=== PATIENT | male | born 2000 | race Caucasian/White ===

== ENCOUNTER 2019-11-12 17:08 | Emergency (ER) | payer OTHER ==
[2019-11-12 17:20] VITALS: BP 119/56
--- NOTE | 2019-11-13 08:35 | REP ---
LEFT WRIST, FIVE VIEWS INCLUDING SCAPHOID VIEW: There is no evidence of an acute fracture, dislocation or intrinsic bone disease. IMPRESSION: No fracture or dislocation. Electronically Signed by Tariq Dupree MD 11/13/2019 06:21 P
== END 2019-11-12 18:11 | disposition home or self-care (01) ==
LOC: M ED 17:08
DX: S63.502A Unspecified sprain of left wrist, initial encounter (principal); W00.0XXA Fall on same level due to ice and snow, initial encounter; Y92.9 Unspecified place or not applicable; Y93.9 Activity, unspecified; Y99.0 Civilian activity done for income or pay

== ENCOUNTER 2019-12-01 01:34 | Inpatient (IN) | payer OTHER ==
[2019-12-01 02:21] LABS: HEMATOCRIT 49.7 % (42.0-52.0); MEAN CORPUSCULAR HGB CONC 32.2 g/dl (32.0-36.5); PLATELET COUNT, AUTOMATED 207 10^3/uL (150-450); RED BLOOD COUNT 5.52 10^6/uL (4.30-6.10); WHITE BLOOD COUNT 8.1 10^3/uL (4.0-10.0)
[2019-12-01 02:47] LABS: AMPHETAMINES LEVEL URINE NEGATIVE (NEGATIVE); BARBITURATES URINE NEGATIVE (NEGATIVE); BENZODIAZEPINES URINE NEGATIVE (NEGATIVE); CANNABINOIDS URINE NEGATIVE (NEGATIVE); COCAINE METABOLITE URINE NEGATIVE (NEGATIVE); METHADONE URINE NEGATIVE (NEGATIVE); OPIATES URINE NEGATIVE (NEGATIVE); PHENCYCLIDINE URINE NEGATIVE (NEGATIVE)
[2019-12-01 02:54] LABS: ACETAMINOPHEN LEVEL < 2.0 UG/ML (10.0-30.0); ALBUMIN 4.3 GM/DL (3.2-5.2); ALT/SGPT 15 U/L (12-78); BILIRUBIN,DIRECT 0.1 MG/DL (0.0-0.2); BILIRUBIN,TOTAL 0.5 MG/DL (0.2-1.0); BLOOD UREA NITROGEN 16 MG/DL (7-18); CALCIUM LEVEL 8.9 MG/DL (8.5-10.1); CARBON DIOXIDE LEVEL 28 MEQ/L (21-32); CHLORIDE LEVEL 107 MEQ/L (98-107); CREATININE FOR GFR 1.07 MG/DL (0.70-1.30); ETHYL ALCOHOL (ETHANOL) < 0.003 % (0.000-0.010); GLUCOSE, FASTING 99 MG/DL (70-100); POTASSIUM SERUM 3.9 MEQ/L (3.5-5.1); SALICYLATE LEVEL < 1.7 MG/DL (5.0-30.0); SODIUM LEVEL 141 MEQ/L (136-145)
[2019-12-01] MEDS ORDERED: MAALOX 30 ML SUSP *UDC PO PRN (03:45)
[2019-12-01] MEDS ORDERED: ACETAMINOPHEN TAB 650MG DOSE (2X325MG) PO PRN (03:45)
[2019-12-01] MEDS ORDERED: traZODone 50 MG TAB PO PRN (03:45)
[2019-12-01] MEDS ORDERED: MOM 30ML SUSPENSION UDC PO PRN (03:45)
[2019-12-01] MEDS ORDERED: ACET-907 PO (04:02)
[2019-12-01 04:32] VITALS: BP 124/75
--- NOTE | 2019-12-01 11:06 | MHHPEPDOC ---
[facility] History & Physical History and Physical DATE OF ADMISSION: Dec 01, 2019 at 03:41 New Patient Rajeev France MRN: N/A Date of : N/A Date of Service: 12/01/2019 Chief Complaint "I had a moment." History of Present Illness The patient a 19-year-old man presents with superficial scratches on his arm, he reports that he found out that his fiance had miscarried and he reports for the last several months, he has been bullied in the . He reports that he has had some low mood and loss of interest at times, but does not meet criteria for major depression. He reports that in the distant past when he was in second grade, he had some reported behavioral problems in the setting of a chaotic early family life but otherwise has been doing well. The patient was admitted out of an abundance of caution. He is currently on 72-hour quarantine as he had gone outside the 60 mile radius designated by [place]. The patient reports that he is feeling much better when I spoke to him. He reports that he finds the situation can overwhelm him. He is interested in trying an antidepressant but is not interested in staying very long on her unit due to the constraints due to the coronavirus pandemic at this time. Review Of Systems Depression: As above. Anxiety: The patient denies any excessive worry associated with physical symptoms. They deny any experience of discreet panic in the past. Radha: The patient denies any episodes of euphoria/dysphoria associated with decreased need for sleep, hedonism, talkatively or impulsivity lasting longer than 5 days. Psychotic: The patient denies any experiences of auditory or visual hallucinations. They deny any episodes of paranoia or delusional thinking in the past Trauma: The patient denies any traumatic events associated with nightmares or intrusive thoughts. Borderline: Not screened due to age. Past Psychiatric History Reports a history of ADHD. Reports being hospitalized at second grade for [employer] reasons. He is on no current antidepressants, had seen [facility] twice for walk-ins. No history of suicide attempts. Allergies Please see below. Family Psychiatric History Reports his father had PTSD and was an alcoholic as well as his mother. No history of suicide. Social History The patient is unmarried man who is currently in a relationship with his fiancee for the last year. He has no children. He currently lives in the [facility]. He subsists on income and has recently joined the over the last 2 years. He does not have any pending legal problems but was given a warning about his travel outside the 60 mile radius. The patient reports an early chaotic family life with CPS involvement and even foster care. Substance Abuse History The patient denies any excessive alcohol use, tobacco or illicit drug use, denies history of substance use treatment. Medical History Patient has no significant past medical history. Mental Status Examination General: Well dressed with good hygiene Speech: Spontaneous and fluid Thought processes: Linear and logical MSK: Smooth and coordinated gait, no signs of tremors or involuntary orofacial movements Thought content: Future orientated Abstract reasoning, and computation: Intact Description of associations: Intact Description of abnormal or psychotic thoughts: Denies any suicidal or homicidal ideation. Denies any auditory or visual hallucinations. Does not appear to be responding to internal stimuli. Does not appear to be endorsing any bizarre or paranoid ideation. 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 Cluster B personality traits. 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 After being admitted it appears these symptoms had gone away, his reported "suicide attempt" appears to be extremely mild, and would be very difficult to characterize as a suicide attempt as the scratches are consistent with more irritation of the skin than actual breaking of skin. Representing what I feel to be more a gesture, when asked specifically about why he did it he does it as means of "control" more consistent with some underlying cluster B personality traits. Patient will be observed and discharged tomorrow if he continues to deny suicide and does not exhibit any behavioral problems. Disposition Discharge tomorrow if improved. Problem List 1. Risk for suicide. 2. Ineffective coping. Initial Treatment Plan 1. Patient was admitted on a 9.39 legal status. 2. Complete history was obtained. 3. With patients permission, family will be contacted and database will be expanded. 4. Patients medication regimen will be reviewed and changed accordingly. 5. Patient will be provided with protected environment. 6. Patient will be treated with individual, group, and milieu therapies. 7. Patient will receive supportive psych-education. 8. Discharge planning will commence immediately. 9. Outpatient follow-up treatment will be strongly recommended. 10. The initial treatment plan will focus initially on: Estimated Length Of Stay 2 days. Time Spent 70 minutes with greater than 70% of time spent on counseling/coordination of care. Vital Signs Vital Signs Date Time Temp Pulse Resp B/P (MAP) Pulse Ox O2 Delivery O2 Flow Rate FiO2 12/01/19 08:48 Room Air 12/01/19 04:32 98.2 73 20 124/75 (91) 12/01/19 01:57 96 Laboratory Data 24H Labs Laboratory Tests 2 12/01/19 02:02: Nucleated Red Blood Cells % (auto) 0.0, Anion Gap 6L, Calcium Level 8.9, Total Bilirubin 0.5, Direct Bilirubin 0.1, Aspartate Amino Transf (AST/SGOT) 10, Alanine Aminotransferase (ALT/SGPT) 15, Alkaline Phosphatase 75, Total Protein 8.0, Albumin 4.3, Albumin/Globulin Ratio 1.16, Thyroid Stimulating Hormone (TSH) 3.790, Salicylates Level < 1.7L, Urine Opiates Screen NEGATIVE, Urine Methadone Screen NEGATIVE, Acetaminophen Level < 2.0L, Urine Barbiturates Screen NEGATIVE, Urine Phencyclidine Screen NEGATIVE, Urine Amphetamines Screen NEGATIVE, Urine Benzodiazepines Screen NEGATIVE, Urine Cocaine Metabolite Screen NEGATIVE, Urine Cannabinoids Screen NEGATIVE, Ethyl Alcohol Level < 0.003 CBC/BMP Laboratory Tests 12/01/19 02:02 Medications Scheduled PRN Acetaminophen (Tylenol) 325 Mg Tablet, 650 MG PO Q4H PRN for PAIN, (Reported) Allergies Coded Allergies: No Known Allergies (Unverified , 12/01/19) A-FIB/CHADSVASC A-FIB History Current/History of A-Fib/PAF?: No LARS RODRIGUEZ DO Dec 01, 2019 11:06
--- NOTE | 2019-12-01 13:03 | HPEPDOC ---
General Date of Admission Dec 01, 2019 at 03:41 Date of Service: Dec 01, 2019 Chief Complaint The patient is a 19-year-old male admitted with a reason for visit of Unspecified Depressive Disorder. Source: Patient Exam Limitations: No limitations Associated Symptoms: Denies Symptoms History of Present Illness Pt is a 19 year old male who was admitted to the behavioral health unit following threats of suicide with attempted suicide. Pt reported that he has been bullied for the past 9 months at ; his coworkers have claimed that he looks like a 'school shooter' and taunt him about it. Pt has also reported that his fiance has recently suffered a miscarriage which worsened his depression. Pt does not take medications for depression and denied previous SI/attempts. 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 He unwittingly went outside of that zone to [place] on Thursday. He was to self- isolate for 72 hours per his [employer] supervisor(s) and has so far, completed 48 of the 72-hour self-isolation. Pt reported he is well and asymptomatic. He was not screened [place]. Home Medications Scheduled PRN Acetaminophen (Tylenol) 325 Mg Tablet, 650 MG PO Q4H PRN for PAIN, (Reported) Allergies Coded Allergies: No Known Allergies (Unverified , 12/01/19) Past Medical History Medical History Unremarkable Surgical History none Family History Significant Family History: No pertinent family hx Social History * Smoker: current smoker, cigarettes (2 per day ), chew (daily ) Alcohol: Denies Drugs: denies A-FIB/CHADSVASC A-FIB History Current/History of A-Fib/PAF?: No Current PO Anticoag Therapy: No Review of Systems Constitutional: Denies: Chills, Fever, Night Sweats Eyes: Denies: Pain ENT: Denies: Head Aches, Ear Pain Skin: Denies: Rash Pulmonary: Denies: Dyspnea, Cough Cardiovascular: Denies: Chest Pain, Palpitations, Edema Gastrointestinal: Denies: Nausea, Vomiting, Abdominal Pain, Diarrhea, Constipation Genitourinary: Denies: Dysuria, Retention Hematologic: Denies: Bruising Musculoskeletal: Denies: Neck Pain, Back Pain, Joint Pain, Muscle Pain, Spasms Neurological: Denies: Weakness, Numbness Psych: Reports: Depression, Thoughts of Self Harm; Denies: Thoughts of Harming Other Physical Examination General Exam: Positive: Alert, No Acute Distress Eye Exam: Positive: PERRLA, Conjunctiva & lids normal, EOMI; Negative: Sclera icteric ENT Exam: Positive: Atraumatic, Mucous membr. moist/pink, Pharynx Normal Neck Exam: Positive: Supple; Negative: thyromegaly Chest Exam: Positive: Clear to auscultation, Normal air movement Heart Exam: Positive: Rate Normal, Regular Rhythm, Normal S1, Normal S2; Negative: Murmurs, Rubs Telemetry: Positive: No significant arrhythmia Abdomen Exam: Positive: Normal bowel sounds, Soft; Negative: Tenderness Extremity Exam: Positive: Normal pulses; Negative: Clubbing, Cyanosis, Edema Skin Exam: Positive: Nl turgor and temperature Neuro Exam: Positive: Normal Gait, Normal Speech, Cranial Nerves 3-12 NL Psych Exam: Positive: Mood NL Vital Signs Vital Signs Date Time Temp Pulse Resp B/P (MAP) Pulse Ox O2 Delivery O2 Flow Rate FiO2 12/01/19 08:48 Room Air 12/01/19 04:32 98.2 73 20 124/75 (91) 12/01/19 01:57 96 Laboratory Data Labs 24H Laboratory Tests 2 12/01/19 02:02: Nucleated Red Blood Cells % (auto) 0.0, Anion Gap 6L, Calcium Level 8.9, Total Bilirubin 0.5, Direct Bilirubin 0.1, Aspartate Amino Transf (AST/SGOT) 10, Alanine Aminotransferase (ALT/SGPT) 15, Alkaline Phosphatase 75, Total Protein 8.0, Albumin 4.3, Albumin/Globulin Ratio 1.16, Thyroid Stimulating Hormone (TSH) 3.790, Salicylates Level < 1.7L, Urine Opiates Screen NEGATIVE, Urine Methadone Screen NEGATIVE, Acetaminophen Level < 2.0L, Urine Barbiturates Screen NEGATIVE, Urine Phencyclidine Screen NEGATIVE, Urine Amphetamines Screen NEGATIVE, Urine Benzodiazepines Screen NEGATIVE, Urine Cocaine Metabolite Screen NEGATIVE, Urine Cannabinoids Screen NEGATIVE, Ethyl Alcohol Level < 0.003 CBC/BMP Laboratory Tests 12/01/19 02:02 Assessment/Plan Pt is a 19 year old male who was admitted to the behavioral health unit following threats of suicide with attempted suicide. Pt reported that he has been bullied for the past 9 months at ; his coworkers have claimed that he looks like a 'school shooter' and taunt him about it. Pt has also reported that his fiance has recently suffered a miscarriage which worsened his depression. Pt does not take medications for depression and denied previous SI/attempts. 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 He unwittingly went outside of that zone to [place] on Thursday. He was to self- isolate for 72 hours per his [employer] supervisor(s) and has so far, completed 48 of the 72-hour self-isolation. Pt reported he is well and asymptomatic. He was not screened [place] the [place]. Depression with suicidal attempt - superficial cuts to the L forearm have begun to scab, will heal without intervention - continued management per psychiatry Isolation precautions - I referred to Liya Patel ([facility]) for instructions regarding pts self-isolation; she of course, stated that the pt should complete his 72 hour self-isolation on [facility]. - I have informed his psychiatrist and PFS. - I have placed the pt on isolation/droplet/contact precautions with a note regarding the above. Medicine will sign off on the patient at this time. Please re-consult as needed. Plan / VTE VTE Prophylaxis Ordered?: No JEFF STEVENS PA-C Dec 01, 2019 13:03
[2019-12-01 16:00] VITALS: BP 129/61
[2019-12-01] MEDS ORDERED: MIRTAZAPINE 7.5MG PER 1/2 TABLET PO SCH (21:00)
[2019-12-02 06:26] VITALS: BP 144/66
[2019-12-02] MEDS ORDERED: REME15TA PO (10:37)
--- NOTE | 2019-12-02 10:39 | MHDSPDOC ---
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 Cluster B personality traits. History of Present Illness The patient a 19-year-old man presents with superficial scratches on his arm, he reports that he found out that his fiance had miscarried and he reports for the last several months, he has been bullied in the . He reports that he has had some low mood and loss of interest at times, but does not meet criteria for major depression. He reports that in the distant past when he was in second grade, he had some reported behavioral problems in the setting of a chaotic early family life but otherwise has been doing well. The patient was admitted out of an abundance of caution. He is currently on 72-hour quarantine as he had gone outside the 60 mile radius designated by [place]. The patient reports that he is feeling much better when I spoke to him. He reports that he finds the situation can overwhelm him. He is interested in trying an antidepressant but is not interested in staying very long on her unit due to the constraints due to the coronavirus pandemic at this time. Consultants Involved Hospitalist/PCP screening Treatment and Progress On The Unit The patient was admitted to the inpatient mental health unit. He was placed on isolation precautions as he had been recommended for quarantine as he had gone outside the 60 mile radius designated by [place], which requires a reflexive 72 hour isolation. The patient was observed for 48 hours where he denied any suicidal or homicidal ideation and attributed his depression primarily to situational problems. He was tried on Remeron 7.5 mg with fair results as he had desired to try antidepressant and had some insomnia. He was unable to attend groups, but was cooperative for treatment. He demonstrate no behavioral p roblems. 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 The patient at the time of discharge did not meet criteria for involuntary admission/extension due to having a normal mental status exam, fair insight into the situation, They are engaged in the discharge process, as well as being friendly and amenable in behavioral control and havent been engaging in any observed concerning behavior or ideation recently. They decline voluntary extension/admission at this time and must be discharged in good shanika, as Im unable to make a case for holding the patient against their will. They may have historical risk factors of admissions and other interactions with psychiatry however, those are not modifiable from a clinical perspective. The patient will need to be discharged in good shanika. Mental Status Examination General: Well dressed with good hygiene Speech: Spontaneous and fluid Thought processes: Linear and logical MSK: Smooth and coordinated gait, no signs of tremors or involuntary orofacial movements Thought content: Future orientated Abstract reasoning, and computation: Intact Description of associations: Intact Description of abnormal or psychotic thoughts: Denies any suicidal or homicidal ideation. Denies any auditory or visual hallucinations. Does not appear to be responding to internal stimuli. Does not appear to be endorsing any bizarre or paranoid ideation. Judgment: fair Insight: fair Orientation: Alert and orientated 3 Cognition: Grossly normal Recent and remote memory: Intact Attention span and concentration: Intact Fund of knowledge: Adequate Mood: "okay" Affect: Euthymic with a full range Follow Up The social work team worked during the predischarge meeting in order to evaluate for further issues of lethality address them fully before discharge. They worked on safety planning with the patient's family members in order to ensure that the patient will have a safe and effective discharge. Time Spent The amount of time spent in the coordination of care for this patient was approximately 40 minutes. Thursday Vital Signs/I&Os Vital Signs Date Time Temp Pulse Resp B/P (MAP) Pulse Ox O2 Delivery O2 Flow Rate FiO2 12/02/19 08:08 Room Air 12/02/19 06:26 98.7 71 14 144/66 (92) 12/01/19 01:57 96 Medications Scheduled Mirtazapine (Remeron) 15 Mg Tablet, 7.5 MG PO QHS for mood for 7 Days, #7 Scheduled PRN Acetaminophen (Tylenol) 325 Mg Tablet, 650 MG PO Q4H PRN for PAIN, (Reported) Allergies Coded Allergies: No Known Allergies (Unverified , 12/01/19) LARS RODRIGUEZ DO Dec 02, 2019 10:39
== END 2019-12-02 11:40 | disposition home or self-care (01) | DRG 882 ==
LOC: M ED 01:34 → M ED INP 03:41 → M PSY 04:24
PROVIDERS: ADMIT Psychiatry & Neurology Psychiatry; ATTEND Psychiatry & Neurology Addiction Medicine
DX: F43.25 Adjustment disorder with mixed disturbance of emotions and conduct (principal); F60.89 Other specific personality disorders; Z81.1 Family history of alcohol abuse and dependence; Z81.8 Family history of other mental and behavioral disorders; F17.210 Nicotine dependence, cigarettes, uncomplicated

== ENCOUNTER 2022-08-08 00:39 | Emergency (ER) | payer MEDICAID, OTHER, SELFPAY ==
[~2022-08-08] VITALS: Ht 190.5 cm; Wt 140.0 kg
[~2022-08-08 00:39] MED LIST: ACET-907 PO; MIRT-62 PO
[2022-08-08 01:05] VITALS: BP 139/98
== END 2022-08-08 02:59 | disposition left against medical advice (07) ==
LOC: M ED 00:39
DX: Z53.21 Procedure and treatment not carried out due to patient leaving prior to being seen by health care provider (principal)

== ENCOUNTER 2022-08-18 22:15 | Emergency (ER) | payer MEDICAID ==
[~2022-08-18] VITALS: Ht 190.5 cm; Wt 139.7 kg
[2022-08-18 22:18] VITALS: BP 147/96
[2022-08-18] MEDS ORDERED: OMEP40CA5 PO (22:27)
[2022-08-18] MEDS ORDERED: HYDR1TAB33 PO (22:29)
== END 2022-08-19 03:24 | disposition left against medical advice (07) ==
LOC: M ED 22:15
DX: Z53.21 Procedure and treatment not carried out due to patient leaving prior to being seen by health care provider (principal)

== ENCOUNTER 2022-11-09 14:30 | Emergency (ER) | payer OTHER, MEDICAID ==
[~2022-11-09] VITALS: Ht 190.5 cm; Wt 136.4 kg
[~2022-11-09 14:30] MED LIST changes: +HYDR1TAB33 PO; +OMEP40CA5 PO
[2022-11-09 15:00] LABS: BASO % 0.3 % (0.0-1.0); EOS % 0.3 % (0.0-3.0); HEMATOCRIT 51.7 % (42.0-52.0); HEMOGLOBIN 17.3 g/dl (13.5-17.5); LYMPH # 0.7 10^3/uL (1.5-5.0); MEAN CORPUSCULAR HEMOGLOBIN 29.4 pg (27.0-33.0); MEAN CORPUSCULAR HGB CONC 33.5 g/dl (32.0-36.5); MEAN CORPUSCULAR VOLUME 87.8 fl (80.0-96.0); MONO # 0.7 10^3/uL (0.0-0.8); MONO % 4.7 % (2.0-8.0); NEUTROPHILS # 12.9 10^3/uL (1.5-8.5); NEUTROPHILS % 89.1 % (36.0-66.0); PLATELET COUNT, AUTOMATED 228 10^3/uL (150-450); RED BLOOD COUNT 5.89 10^6/uL (4.30-6.10); WHITE BLOOD COUNT 14.5 10^3/uL (4.0-10.0)
[2022-11-09 15:28] LABS: LIPASE 23 U/L (12-53)
[2022-11-09 15:30] LABS: ALBUMIN 4.2 G/DL (3.2-5.2); ALKALINE PHOSPHATASE 102 U/L (46-116); ALT/SGPT 110 U/L (7.0-40); AST/SGOT 34 U/L (<34); BILIRUBIN,DIRECT 0.2 MG/DL (<0.4); BILIRUBIN,TOTAL 0.7 MG/DL (0.3-1.2); BLOOD UREA NITROGEN 18 MG/DL (9-23); CALCIUM LEVEL 9.3 MG/DL (8.5-10.1); CARBON DIOXIDE LEVEL 26 MMOL/L (20-31); CHLORIDE LEVEL 104 MMOL/L (98-107); CREATININE FOR GFR 1.05 MG/DL (0.70-1.30); GLOMERULAR FILTRATION RATE > 60.0 (>60); GLUCOSE, FASTING 129 MG/DL (60-100); POTASSIUM SERUM 4.9 MMOL/L (3.5-5.1); SODIUM LEVEL 138 MMOL/L (136-145); TOTAL PROTEIN 7.8 G/DL (5.7-8.2)
[2022-11-09] MEDS ORDERED: NS 1,000 ML IV ONE (15:35)
[2022-11-09] MEDS ORDERED: GI COCKTAIL 50ML BTL(HYOSCYAMINE/MAALOX/LIDOCAINE VISCOUS)(1:3:1) PO ONE (16:25)
[2022-11-09] MEDS ORDERED: ONDANSETRON 4MG 2ML VIAL IV ONE (17:05)
[2022-11-09] MEDS ORDERED: NS 500 ML IV ONE (18:30)
[2022-11-09] MEDS ORDERED: ONDA4TAB6 PO (18:36)
[2022-11-09 19:30] VITALS: BP 134/74
== END 2022-11-09 19:38 | disposition home or self-care (01) ==
LOC: EDBD 14:30 → M ED 14:30
DX: A08.4 Viral intestinal infection, unspecified (principal); K21.9 Gastro-esophageal reflux disease without esophagitis; F17.290 Nicotine dependence, other tobacco product, uncomplicated; Z79.899 Other long term (current) drug therapy
CPT/HCPCS: 71046; 74019; 80048; 80076; 83690; 85025; 87486; 87581; 87633; 87798; 93005; 96361; 96374; 99284; J2405

== ENCOUNTER → 2022-11-10 | Outpatient (REF) ==
[~2022-11-10] MED LIST changes: +ONDA4TAB6 PO
== END ==
LOC: M PLAIMG 15:02
PROVIDERS: ATTEND Internal Medicine
DX: R06.02 Shortness of breath (principal)